=== PATIENT | female | born 1965 | race Hispanic/Latino ===

== ENCOUNTER 2022-02-14 09:06 | Emergency (ER) | payer OTHER ==
[~2022-02-14] VITALS: Ht 162.6 cm; Wt 88.5 kg
[2022-02-14 09:11] VITALS: BP 170/91
[2022-02-14] MEDS ORDERED: ACETAMINOPHEN 500 MG TABLET PO SCH (10:00)
== END 2022-02-14 10:27 | disposition home or self-care (01) ==
LOC: EDH 09:06
DX: U07.1 COVID-19 (principal)
CPT/HCPCS: 87635; 87804 ×2; 87880; 99283; C9803